=== PATIENT | female | born 1960 | race American Indian/Alaskan Native ===

== ENCOUNTER 2017-03-01 11:47 | Outpatient (CLI) | payer MEDICAID ==
--- NOTE | 2017-03-01 13:40 | XRay Report ---
AP lateral lumbar spine. History: Radiculopathy/myelopathy. Findings: Posterior fusion has been performed at L4-5. The vertical rods and transpedicular screws are in satisfactory position. The disc spacer is also in normal position. Alignment is normal. There is mild narrowing of the disc spaces at L3-4 and L5-S1. The vertebral body heights are normal. Bone mineralization is normal. Impression: Normal appearance of postoperative fusion at L4-5 with mild discogenic changes seen at L3-4 and L5-S1.
--- NOTE | 2017-03-01 15:26 | Magnetic Resonance Report ---
MRI of the lumbar spine without contrast. History: Lumbar radiculopathy. Procedure: Sagittal T1 weighted, T2-weighted, inversion recovery images, and axial T1 and T2-weighted images were used in the study. Findings: The L1-2 through L3-4 levels are unremarkable. At L4-5, there is susceptibility artifact related to posterior fusion including transpedicular screws and vertical rods. There is also susceptibility artifact related to the disc spacer. The contour of the thecal sac at the L4-5 level appears normal. The neural foramina are patent. The L5-S1 level is unremarkable. The bony structures appear normal. The conus is unremarkable. Impression: Normal postoperative changes at L4-5 with associated artifact as detailed above. No other significant findings are seen.
== END 2017-03-01 11:48 | disposition home or self-care (01) ==
LOC: MRI 11:47
DX: M47.817 Spondylosis without myelopathy or radiculopathy, lumbosacral region (principal); M43.26 Fusion of spine, lumbar region
CPT/HCPCS: 72100; 72148

== ENCOUNTER 2017-08-04 16:04 | Emergency (ER) | payer OTHER, MEDICAID ==
[2017-08-04 16:29] VITALS: BP 130/93
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
== END 2017-08-04 21:19 | disposition home or self-care (01) ==
LOC: ED 16:04
DX: S39.012A Strain of muscle, fascia and tendon of lower back, initial encounter (principal); S46.812A Strain of other muscles, fascia and tendons at shoulder and upper arm level, left arm, initial encounter; S46.811A Strain of other muscles, fascia and tendons at shoulder and upper arm level, right arm, initial encounter; M54.16 Radiculopathy, lumbar region; I10 Essential (primary) hypertension; E11.9 Type 2 diabetes mellitus without complications; F17.200 Nicotine dependence, unspecified, uncomplicated; V43.53XA Car driver injured in collision with pick-up truck in traffic accident, initial encounter; Y93.89 Activity, other specified; Y92.89 Other specified places as the place of occurrence of the external cause; Y99.8 Other external cause status
CPT/HCPCS: 99281

== ENCOUNTER 2019-05-16 10:44 | Emergency (ER) | payer MEDICAID ==
[2019-05-16 10:53] VITALS: BP 142/85
[2019-05-16] MEDS ORDERED: IBUPROFEN 800 MG TAB PO ONE (11:24)
--- NOTE | 2019-05-16 12:08 | Vascular Lab Report ---
DUPLEX DOPPLER LOWER EXTREMITY VEINS, LEFT INDICATION: left non-traumatic thigh pain x 1 week. TECHNIQUE: Duplex doppler imaging was performed through the veins of the left lower extremity using venous compression and other maneuvers. COMPARISON: No relevant prior imaging study available. FINDINGS: Left Common femoral vein: Negative. Left Superficial femoral vein: Negative. Left Popliteal vein: Negative. Left Calf veins: Negative. Additional findings: None.. IMPRESSION: No sonographic evidence for DVT in the left lower extremity. Signer Name: Lloyd Betancur Jr, MD Signed: 05/16/2019 12:04 PM Workstation Name: [id number]
--- NOTE | 2019-05-16 12:47 | Emergency Department Report ---
ED Extremity Problem HPI - General Chief complaint: Eye Problems Stated complaint: PAIN IN (L) LEG Time Seen by Provider: 05/16/19 11:24 Source: patient Mode of arrival: Ambulatory Limitations: No Limitations - History of Present Illness Initial comments: Patient is a 58-year-old asthmatic female with past medical history of diabetes and hypertension who is complaining of left thigh pain for the last week. Patient states she's been limping secondary to pain. She states the aching throbbing pain is 8 out of 10 severity. She denies any trauma or recent travel or recent surgery. She is a smoker. Says it is no swelling that she can appreciate however she says the pain is worse with palpation and with walking. Severity scale (0 -10): 7 - Related Data Previous Rx's Medication Instructions Recorded Last Taken Type Ibuprofen [Motrin 800 MG tab] 800 mg PO Q8HR PRN #14 tablet 05/16/19 Unknown Rx methOCARBAMOL [Robaxin TAB] 500 mg PO Q6H PRN #14 tablet 05/16/19 Unknown Rx traMADoL [Ultram] 50 mg PO Q6HR PRN #12 tablet 05/16/19 Unknown Rx Allergies Allergy/AdvReac Type Severity Reaction Status Date / Time No Known Allergies Allergy Verified 08/04/17 16:24 ED Review of Systems ROS: Stated complaint: PAIN IN (L) LEG Other details as noted in HPI Comment: All other systems reviewed and negative ED Past Medical Hx - Past Medical History Previous Medical History?: Yes Hx Hypertension: Yes Hx Diabetes: Yes (TYPE 2) - Surgical History Past Surgical History?: Yes Additional Surgical History: BACK - Social History Smoking Status: Current Every Day Smoker Substance Use Type: None - Medications Home Medications: Home Medications Medication Instructions Recorded Confirmed Last Taken Type Ibuprofen [Motrin 800 MG tab] 800 mg PO Q8HR PRN #14 tablet 05/16/19 Unknown Rx methOCARBAMOL [Robaxin TAB] 500 mg PO Q6H PRN #14 tablet 05/16/19 Unknown Rx traMADoL [Ultram] 50 mg PO Q6HR PRN #12 tablet 05/16/19 Unknown Rx ED Physical Exam - General Limitations: No Limitations General appearance: alert, in no apparent distress - Head Head exam: Present: atraumatic, normocephalic - Eye Eye exam: Present: normal appearance - ENT ENT exam: Present: mucous membranes moist - Neck Neck exam: Present: normal inspection - Respiratory Respiratory exam: Present: normal lung sounds bilaterally. Absent: respiratory distress, wheezes, rales, rhonchi - Cardiovascular Cardiovascular Exam: Present: regular rate, normal rhythm. Absent: systolic murmur, diastolic murmur, rubs, gallop - GI/Abdominal GI/Abdominal exam: Present: soft, normal bowel sounds. Absent: distended, tenderness, guarding - Extremities Exam Extremities exam: Present: normal inspection, tenderness (left anterior thigh as well as the left lateral thigh.) - Back Exam Back exam: Present: normal inspection - Neurological Exam Neurological exam: Present: alert, oriented X3 - Psychiatric Psychiatric exam: Present: normal affect, normal mood - Skin Skin exam: Present: warm, dry, intact, normal color. Absent: rash ED Course Vital Signs 05/16/19 05/16/19 05/16/19 10:51 11:31 12:31 Temperature 97.5 F L Pulse Rate 91 H Respiratory 16 19 18 Rate Blood Pressure 142/85 O2 Sat by Pulse 96 Oximetry ED Medical Decision Making - Radiology Data DUPLEX DOPPLER LOWER EXTREMITY VEINS, LEFT INDICATION: left non-traumatic thigh pain x 1 week. TECHNIQUE: Duplex doppler imaging was performed through the veins of the left lower extremity using venous compression and other maneuvers. COMPARISON: No relevant prior imaging study available. FINDINGS: Left Common femoral vein: Negative. Left Superficial femoral vein: Negative. Left Popliteal vein: Negative. Left Calf veins: Negative. Additional findings: None.. IMPRESSION: No sonographic evidence for DVT in the left lower extremity. Signer Name: Lloyd Betancur Jr, MD Signed: 05/16/2019 12:04 PM Workstation Name: [id number] - Medical Decision Making Patient is a 58-year-old female who is a smoker and has a history of diabetes who's complaining of left eye pain. Pain very well could be a neuropathy however because of her smoking and diabetes history AND was done to rule out DVT. DVT scan was negative. Patient be given a muscle relaxant and medication for symptomatically relief and she will be discharged home. Critical care attestation.: If time is entered above; I have spent that time in minutes in the direct care of this critically ill patient, excluding procedure time. ED Disposition Clinical Impression: Musculoskeletal leg pain Qualifiers: Laterality: left Qualified Code(s): M79.605 - Pain in left leg Disposition: - TO HOME OR SELFCARE Is pt being admited?: No Does the pt Need Aspirin: No Condition: Stable Instructions: Musculoskeletal Pain (ED) Additional Instructions: Please follow-up with your primary care physician Time of Disposition: 12:46
== END 2019-05-16 13:04 | disposition home or self-care (01) ==
LOC: ED 10:44
DX: M79.605 Pain in left leg (principal); I10 Essential (primary) hypertension; E11.9 Type 2 diabetes mellitus without complications; F17.200 Nicotine dependence, unspecified, uncomplicated